=== PATIENT | male | born 1965 | race Two or more races ===

== ENCOUNTER 2025-05-11 13:56 | Inpatient (IN) | payer BC, MEDICAID ==
[~2025-05-11] VITALS: Ht 185.4 cm; Wt 80.3 kg
[2025-05-11] MEDS: PIPERACILLIN/TAZO 3.375G/50ML 50 ML IV SCH (16:58)
[2025-05-11] MEDS: ACETAMINOPHEN 500MG TABLET PO ONE (16:58)
[2025-05-11 17:08] LABS: BASOPHILS % 1.0 % (0.0-2.0); EOSINOPHILS % 13.1 % (0.0-5.0); HEMATOCRIT. 37.3 % (42.0-52.0); HEMOGLOBIN. 12.0 g/dL (14.0-18.0); LYMPHOCYTES % 14.8 % (20.0-50.0); MEAN PLATELET VOLUME 9.1 fl (7.4-10.4); MONOCYTES % 5.8 % (2.0-8.0); NEUTROPHILS % 65.3 % (40.0-76.0); PLATELET 197 x1000/uL (130-400); RED BLOOD CELL COUNT 3.95 mill/uL (4.7-6.1); RED CELL DISTRIBUTION WIDTH 17.9 % (11.6-14.6)
[2025-05-11 17:23] LABS: UREA NITROGEN BLOOD 44 mg/dL (9-23)
[2025-05-11 17:24] LABS: ASPARTATE AMINOTRANSFERASE 25 IU/L (<34)
[2025-05-11 17:25] LABS: BILIRUBIN DIRECT 0.2 mg/dL (<=3.0); BILIRUBIN TOTAL 0.4 mg/dL (0.1-1.0); PROTEIN TOTAL 9.2 g/dL (6.0-8.3)
[2025-05-11 17:30] LABS: CREATININE 9.3 mg/dL (0.6-1.3)
[2025-05-11] MEDS: DEXTROSE 50% WATER 50ML SYRINGE IV ONE (18:00)
[2025-05-11] MEDS: INSULIN REGULAR (HUMULIN R) 1000UNITS/10ML VIAL IV ONE (18:00)
[2025-05-11] MEDS ORDERED: DOCUSATE SODIUM 100MG CAPSULE PO PRN (20:15)
[2025-05-11] MEDS ORDERED: NALOXONE HCL 0.4MG/ML VIAL IV PRN (20:15)
[2025-05-11] MEDS ORDERED: ACETAMINOPHEN 325MG TABLET PO PRN (20:15)
[2025-05-11] MEDS ORDERED: ONDANSETRON HCL 4MG/2ML INJ IV PRN (20:15)
[2025-05-11] MEDS ORDERED: MAGNESIUM/ALUMINUM HYDROXIDE/SIMETHICONE 30ML UDC PO PRN (20:15)
[2025-05-11] MEDS ORDERED: CLONIDINE 0.1MG TABLET PO PRN (20:15)
[2025-05-11] MEDS ORDERED: HYDROCODONE/ACETAMINOPHEN 5/325MG TABLET PO PRN (20:15)
[2025-05-11] MEDS ORDERED: POTASSIUM CHLORIDE 20MEQ TABLET SR PO PRN (20:15)
[2025-05-11] MEDS ORDERED: DEXTROSE 50% WATER 50ML SYRINGE IV PRN ×2 (20:15)
[2025-05-11] MEDS: INSULIN REGULAR (HUMULIN R) 1000UNITS/10ML VIAL IV SCH (21:00)
[2025-05-11] MEDS: DEXTROSE 50% WATER 50ML SYRINGE IV SCH (21:00)
[2025-05-11] MEDS: INSULIN LISPRO 100 UNITS/ML SUBCUT SCH (21:00)
[2025-05-11] MEDS: ENOXAPARIN 30MG/0.3ML SYR SUBCUT SCH (21:00)
[2025-05-11] MEDS: BLOOD SUGAR DIAGNOSTIC STRIP TEST SCH (21:04)
[2025-05-11 23:27] VITALS: BP 128/88; PULSE 82; RESP 18; TEMP 36.6404
[2025-05-12] VITALS (14 sets, daily range): BP systolic 86–140; BP diastolic 56–104; PULSE 80–84; RESP 16–20; TEMP 36.4–37; O2SAT 98–100
[2025-05-12] MEDS ORDERED: FOLI0.8T23 MT (01:02)
[2025-05-12] MEDS ORDERED: SITA25TA3 MT (01:02)
[2025-05-12] MEDS ORDERED: AMLO10TA80 PO (01:02)
[2025-05-12] MEDS ORDERED: FAMO20TA8 PO (01:02)
[2025-05-12] MEDS ORDERED: LOSA50TA41 PO (01:02)
[2025-05-12] MEDS ORDERED: FURO-151 MT (01:02)
[2025-05-12] MEDS: ACETAMINOPHEN 325MG TABLET PO PRN (03:45)
[2025-05-12] MEDS: AMLODIPINE 10MG TABLET PO SCH (08:17)
[2025-05-12 09:51] LABS: HEMATOCRIT. 31.8 % (42.0-52.0); HEMOGLOBIN. 10.5 g/dL (14.0-18.0); MEAN PLATELET VOLUME 9.1 fl (7.4-10.4); PLATELET 173 x1000/uL (130-400); RED BLOOD CELL COUNT 3.42 mill/uL (4.7-6.1); RED CELL DISTRIBUTION WIDTH 17.6 % (11.6-14.6)
[2025-05-12 10:14] LABS: T4 FREE 1.31 ng/dL (0.89-1.76)
[2025-05-12 10:16] LABS: TRIGLYCERIDE 27 mg/dL (0-150); UREA NITROGEN BLOOD 53 mg/dL (9-23)
[2025-05-12 10:17] LABS: LDL CHOLESTEROL 37 mg/dL (5-100)
[2025-05-12 10:18] LABS: PHOSPHORUS 5.9 mg/dL (2.5-4.9)
[2025-05-12 10:57] LABS: CREATININE 10.2 mg/dL (0.6-1.3)
[2025-05-12] MEDS: VANCOMYCIN 1.5GM PMX (XELLIA) 300 ML IV SCH (15:46)
[2025-05-12] MEDS: NITROGLYCERIN OINT 1GM/INCH UDPKT TD SCH (15:50)
[2025-05-12] MEDS ORDERED: SEVE800T8 MT (19:10)
[2025-05-13] VITALS: BP 126/88; PULSE 91; RESP 18; TEMP 36.7; O2SAT 98
[2025-05-13 04:00] VITALS: BP 134/91; PULSE 74; RESP 18; TEMP 36.6; O2SAT 99
[2025-05-13 06:10] LABS: EOSINOPHILS % MANUAL 16.0 % (0.0-5.0); LYMPHOCYTES % MANUAL 15.0 % (20.0-50.0); MONOCYTES % MANUAL 13.0 % (2.0-8.0); NEUTROPHILS % MANUAL 56.0 % (45.0-75.0); PLATELET ESTIMATE NORMAL
[2025-05-13 08:00] VITALS: BP 151/90; PULSE 86; RESP 18; TEMP 36.6; O2SAT 98
[2025-05-13] MEDS: SEVELAMER CARBONATE 800 MG TABLET PO SCH (08:24)
[2025-05-13] MEDS: FOLIC ACID/VITAMIN B COMP W-C TABLET PO SCH (08:24)
[2025-05-13 12:00] VITALS: BP 138/87; PULSE 78; RESP 20; TEMP 36.7; O2SAT 99
[2025-05-13 12:44] LABS: HEMATOCRIT. 33.4 % (42.0-52.0); HEMOGLOBIN. 10.7 g/dL (14.0-18.0); MEAN PLATELET VOLUME 8.8 fl (7.4-10.4); PLATELET 181 x1000/uL (130-400); RED BLOOD CELL COUNT 3.55 mill/uL (4.7-6.1); RED CELL DISTRIBUTION WIDTH 17.8 % (11.6-14.6)
[2025-05-13 13:08] LABS: UREA NITROGEN BLOOD 43 mg/dL (9-23)
[2025-05-13 13:10] LABS: PHOSPHORUS 5.9 mg/dL (2.5-4.9)
[2025-05-13 13:17] LABS: CREATININE 9.2 mg/dL (0.6-1.3)
[2025-05-13 16:00] VITALS: BP 131/84; PULSE 81; RESP 18; TEMP 36.9; O2SAT 98
[2025-05-13 18:47] LABS: EOSINOPHILS % MANUAL 16.0 % (0.0-5.0); LYMPHOCYTES % MANUAL 13.0 % (20.0-50.0); MONOCYTES % MANUAL 8.0 % (2.0-8.0); NEUTROPHILS % MANUAL 63.0 % (45.0-75.0); PLATELET ESTIMATE NORMAL
[2025-05-13 20:00] VITALS: BP 137/85; PULSE 90; RESP 18; TEMP 36.6; O2SAT 95
[2025-05-13] MEDS: IOHEXOL-350 50 ML BOTTLE ONE (20:00)
[2025-05-13] MEDS: IOHEXOL-350 100 ML BOTTLE ONE (20:00)
[2025-05-14] VITALS (11 sets, daily range): BP systolic 109–155; BP diastolic 70–97; PULSE 18–90; RESP 18–20; TEMP 36.5–37.1; O2SAT 95–100
[2025-05-14] MEDS: ASPIRIN 81MG TABLET PO SCH (09:00)
[2025-05-14 12:19] LABS: HEMATOCRIT. 32.7 % (42.0-52.0); HEMOGLOBIN. 10.5 g/dL (14.0-18.0); MEAN PLATELET VOLUME 9.2 fl (7.4-10.4); PLATELET 165 x1000/uL (130-400); RED BLOOD CELL COUNT 3.50 mill/uL (4.7-6.1); RED CELL DISTRIBUTION WIDTH 17.8 % (11.6-14.6)
[2025-05-14 12:42] LABS: UREA NITROGEN BLOOD 42.0 mg/dL (9-23)
[2025-05-14 14:07] LABS: CREATININE 10.3 mg/dL (0.6-1.3)
[2025-05-14] MEDS: SEVELAMER CARBONATE 800 MG TABLET PO NR (22:50)
[2025-05-15 00:05] VITALS: BP 104/65; PULSE 93; RESP 18; TEMP 36.6; O2SAT 97
[2025-05-15 08:00] VITALS: BP 139/86; PULSE 88; RESP 20; TEMP 36.3; O2SAT 100
[2025-05-15 11:48] LABS: EOSINOPHILS % MANUAL 21.0 % (0.0-5.0); LYMPHOCYTES % MANUAL 13.0 % (20.0-50.0); MONOCYTES % MANUAL 2.0 % (2.0-8.0); NEUTROPHILS % MANUAL 64.0 % (45.0-75.0); PLATELET ESTIMATE NORMAL
[2025-05-15 12:00] VITALS: BP 118/86; PULSE 90; RESP 22; TEMP 36.2; O2SAT 100
[2025-05-15] MEDS ORDERED: ASPI-1406 MT (13:13)
[2025-05-15] MEDS: VANCOMYCIN 1GM PMX (XELLIA) 200 ML IV SCH (14:16)
[2025-05-15 16:00] VITALS: BP 119/69; PULSE 89; RESP 22; TEMP 36.3; O2SAT 97
[2025-05-15 20:00] VITALS: BP 115/61; PULSE 72; RESP 20; TEMP 36.5; O2SAT 96
[2025-05-15] MEDS ORDERED: AMOX1TAB16 MT (20:17)
[2025-05-16] VITALS (11 sets, daily range): BP systolic 118–171; BP diastolic 58–89; PULSE 66–94; RESP 18–24; TEMP 36.16956–37.7; O2SAT 91–97
[2025-05-16] MEDS: IPRATROPIUM/ALBUTEROL 0.5-3(2.5)MG/3ML NEB HHN PRN (15:37)
[2025-05-17] VITALS: BP 144/69; PULSE 92; RESP 20; TEMP 36.8; O2SAT 97
[2025-05-17 04:00] VITALS: BP 150/77; PULSE 95; RESP 20; TEMP 36.7; O2SAT 98
[2025-05-17 06:12] VITALS: BP 136/85; PULSE 87; RESP 18; TEMP 36.6; O2SAT 97
[2025-05-17 08:26] VITALS: BP 145/92; PULSE 88; RESP 20; TEMP 36.5; O2SAT 94
[2025-05-17 10:58] VITALS: BP 145/92; PULSE 88; RESP 20; TEMP 97.7
== END 2025-05-17 13:17 | disposition home health service (06) | DRG 197 ==
LOC: ER 13:56 → EDBEDREQSVC 18:02 → EDBEDREQ 18:02 → EDBEDREQTM 18:02 → ENRESERV 18:42 → 7WST 20:33
PROVIDERS: ADMIT Family Medicine Adult Medicine; ATTEND Family Medicine Adult Medicine
PROC: 5A1D70Z Performance of Urinary Filtration, Intermittent, Less than 6 Hours Per Day (ICD-10-PCS; principal; 2025-05-12)
PROC: 5A1D70Z Performance of Urinary Filtration, Intermittent, Less than 6 Hours Per Day (ICD-10-PCS; 2025-05-14)
PROC: 5A1D70Z Performance of Urinary Filtration, Intermittent, Less than 6 Hours Per Day (ICD-10-PCS; 2025-05-16)
DX: E11.52 Type 2 diabetes mellitus with diabetic peripheral angiopathy with gangrene (principal); I12.0 Hypertensive chronic kidney disease with stage 5 chronic kidney disease or end stage renal disease; N18.6 End stage renal disease; Z99.2 Dependence on renal dialysis; E11.22 Type 2 diabetes mellitus with diabetic chronic kidney disease; E11.621 Type 2 diabetes mellitus with foot ulcer; E87.5 Hyperkalemia; L97.519 Non-pressure chronic ulcer of other part of right foot with unspecified severity; J98.11 Atelectasis
CPT/HCPCS: 36415; 73620; 75635; 80048; 80061; 80076; 80202; 82962; 83036; 83735; 84100; 84439; 85025; 90935; 93005; 93923; 94070; 94640; 96365; 96375; 97162; 99285; A4606; A4615; J1650; J1815; J2543; J3373; Q9967